=== PATIENT | female | born 1990 | race Caucasian/White ===

== ENCOUNTER 2018-11-12 12:27 | Outpatient (CLI) | payer MEDICAID ==
[~2018-11-12] VITALS: Ht 149.9 cm; Wt 93.9 kg
[2018-11-12 13:09] VITALS: BP 111/67; PULSE 107; RESP 22
[2018-11-12 13:10] VITALS: Ht 149.9 cm; Wt 93.9 kg
--- NOTE | 2018-11-12 16:14 | PN ---
Triage Information Date/Time Reason for visit: decreased movements Weeks of Gestation 25+ /Para n/a Diabetes: none Hypertention: none Objective Vital Signs Date Temp Pulse Resp B/P (MAP) Pulse Ox O2 O2 Flow FiO2 Time Delivery Rate 11/12/18 98.8 107 22 111/67 98 Room Air 13:09 (82) Heart Rate: 140's Contractions: None Results/Medications Results 24 hrs Laboratory Tests Test 11/12/18 13:40 Urine Color YELLOW Urine Clarity SLIGHTLY CLOUDY A Urine pH 5.0 Urine Specific [place] 1.025 Urine Ketones TRACE A Urine Nitrite NEGATIVE Urine Bilirubin NEGATIVE Urine Urobilinogen NEGATIVE Urine Leukocyte Esterase 2+ H Urine Microscopic RBC 4 Urine Microscopic WBC 51 H Urine Squamous Epithelial Cells FEW Urine Bacteria FEW A Urine Mucus FEW A Urine Hemoglobin NEGATIVE Urine Glucose 1+ H Urine Total Protein 1+ H Fibronectin NEGATIVE Disposition: Discharge Assessment/Plan Ultrasound reviewed +FM --->discharged to ER for further work up for cough --->Questions answered --->Follow up with provider JASON SERRATO M.D. Nov 12, 2018 16:14
--- NOTE | 2018-11-12 16:25 | TRIAGE ---
OB Triage Datetime Report Generated by CPN: 11/12/2018 16:25 Datetime: 11/12/2018 16:00 Pattern: Normal: <= 5 Contractions in 10 Minutes Resting Tone [place]: Relaxed Contraction Comments: no uc Heart Rate FHR Baseline Rate: 145 Monitor Mode: External US Variability: Moderate 6-25 bpm Accelerations: 15X15 Decelerations: None Category: Category I Datetime: 11/12/2018 15:00 Pattern: Normal: <= 5 Contractions in 10 Minutes Resting Tone [place]: Relaxed Contraction Comments: no uc Heart Rate FHR Baseline Rate: 135 Variability: Moderate 6-25 bpm Accelerations: 15X15 Decelerations: None Category: Category I Datetime: 11/12/2018 13:59 Contraction Comments: no uc Heart Rate FHR Baseline Rate: 145 Datetime: 11/12/2018 13:05 Labor Evaluation Frequency: 0 Monitor Mode: External Resting Tone [place]: Relaxed Heart Rate FHR Baseline Rate: 140 Monitor Mode: External US FHR Baseline Changes: No Baseline Change Decelerations: None Category: Category I Datetime: 11/12/2018 13:01 Stage of : OB Triage Assessment Type: Triage Maternal Assessment Level of Consciousness: Fully Conscious DTR's/Clonus: DTRs 2+; No Clonus Headache: Denies Blurred Vision: No Respiratory Effort: Unlabored; Regular Rhythm; Equal Expansion Breath Sounds, Left: Clear and Equal Breath Sounds, Right: Clear and Equal Nausea/Vomiting: Denies RUQ Epigastric Pain: Denies Lower Extremities Edema: Bilateral Lower Extremities Degree: 1+ Upper Extremities Edema: None Degree: None Facial Edema: None Temperature Route: Oral Fall Risk Assessment History of Falling: (0) No Secondary Diagnosis: (0) No Ambulatory Aid: (0) Bedrest/Nurse Assist IV Therapy: (0) No Gait: (0) Normal/Bedrest/Immobile Mental Status: (0) Oriented to Own Ability Fall Score: 0 Fall Risk Score Definition: No Risk: No action required Monitor Mode: External Monitor Mode: External US Pain Assessment Pain Scale: 0 Pain Presence: None/Denies Pain Type: N/A Pain Goal: 0 Pain Relief Measures: Comfort Measures Vaginal Exam Dilatation (cms): DEFFER Membrane Status: Intact Datetime: 11/12/2018 13:00 Time of Arrival: 11/12/2018 13:00 EGA: 24.6 Arrived By: Ambulatory Arrived From: Home Chief Complaint: DECREASED MOVEMENT AND BROAD LIGAMENT PAIN, also c/o coughing for 15 days Movement: Decreased Contractions: Denies/Absent Rupture of Membranes: Denies Vaginal Bleeding: None Vaginal Discharge: Denies Recent Sexual Intercouse: Denies Abdominal Trauma: Not Applicable Patient Complaints: Cramping Additional Patient Complaints: EXT FM AND TOCO MONITORING Time Provider Notified: 11/12/2018 13:35 Provider Notified:
[2018-11-12] MEDS ORDERED: AZIT250T PO (17:51)
[2018-11-12] MEDS ORDERED: ALBU18HF INHALATION (17:51)
== END 2018-11-12 16:35 | disposition home or self-care (01) ==
LOC: OBT 12:27 → L-D 12:27 → OBT 16:35
PROVIDERS: ATTEND Obstetrics & Gynecology
DX: O36.8120 Decreased fetal movements, second trimester, not applicable or unspecified (principal); Z3A.25 25 weeks gestation of pregnancy
CPT/HCPCS: 76817; 81001; 82731; Z7500; G0463

== ENCOUNTER 2018-11-12 16:33 | Emergency (ER) | payer MEDICAID ==
[~2018-11-12] VITALS: Ht 165.1 cm; Wt 93.4 kg
[2018-11-12 17:35] VITALS: Ht 165.1 cm; Wt 93.4 kg
[2018-11-12] MEDS ORDERED: ALBUTEROL 0.083% (NEB) 2.5 MG/3 ML AMP HHN STA (17:50)
[2018-11-12] MEDS ORDERED: ALBU18HF INHALATION (17:51)
[2018-11-12] MEDS ORDERED: AZIT250T PO (17:51)
--- NOTE | 2018-11-12 17:53 | ERD ---
ER Documentation Chief Complaint Chief Complaint Complains of cough, colds and flu like symptoms HPI 28-year-old female presents with a one-week history of coughing and wheezing. She has a productive cough. She denies fevers. She has ear pain and sore throat as well. She is 25 weeks denies abdominal pain or vaginal bleeding. She has a history of asthma but does not have a inhaler at home. ROS All systems reviewed and are negative except as per history of present illness. Medications Home Meds Active Scripts Azithromycin* (Zithromax*) 250 Mg Tablet, 250 MG PO .ZPACK DIRECTED, #6 TAB TAKE 500 MG (2 TABS) THE FIRST DAY THEN 250 MG (1 TAB) DAYS 2-5 Prov:FAUSTINO BRADY MD 11/12/18 Albuterol Sulfate* (Ventolin HFA*) 18 Gm Hfa.aer.ad, 2 PUFF INHALATION Q4H, #1 INHALER Prov:FAUSTINO BRADY MD 11/12/18 Allergies Allergies: Coded Allergies: No Known Allergy (Unverified , 11/12/18) FmHx Family History: No diabetes, No coronary disease, No other Physical Exam Vitals Vital Signs Date Temp Pulse Resp B/P (MAP) Pulse Ox O2 O2 Flow FiO2 Time Delivery Rate 11/12/18 98.4 109 20 121/70 98 17:35 (87) Physical Exam Const: No acute distress Head: Atraumatic Eyes: Normal Conjunctiva ENT: Normal External Ears, Nose and Mouth. Gums and oropharynx normal. Neck: Full range of motion. No meningismus. Resp: Clear to auscultation bilaterally with rhonchi and wheezing and coarse breath sounds without rales or retractions. Cardio: Regular rate and rhythm, no murmurs Abd: Soft, non tender, non distended. Normal bowel sounds Skin: No petechiae or rashes Back: No midline or flank tenderness Ext: No cyanosis, or edema Neur: Awake and alert Psych: Normal Mood and Affect Results 24 hrs Current Medications Medications Dose Sig/Wilfredo Start Time Status Last (Trade) Ordered Route PRN Stop Time Admin Dose Reason Admin 8 mg ONCE ONCE 11/12/18 Dexamethasone PO 18:00 (Decadron) 11/12/18 18:01 Albuterol 5 mg ONCE STAT 2/25/19 DC (Proventil HHN 17:50 0.083% (Neb)) 11/12/18 17:51 Procedures/MDM Patient given Decadron 8 mg by mouth and albuterol 5 mg inhaled nebulizer. Patient improved breath sounds without rales or retractions on serial exam. She had mild increased expiratory phase without hypoxemia or signs of respiratory distress. Patient presents with a one-week history of worsening productive cough without signs of pneumonia, and no identifiable signs or symptoms of complications of . We will treat empirically with Zithromax, Ventolin, primary care follow-up and return precautions. The patient was stable with no new complaints during the ER course. Clinically, there is no current evidence to suggest meningitis, sepsis, acute abdomen, pneumonia, stroke, acute coronary syndrome, pulmonary embolism, aortic dissection or any other emergent condition appearing to require further evaluation or hospitalization. Patient counseled regarding my diagnostic impression and care plan. Prior to discharge all questions answered. Pt agrees with treatment plan and understands strict return precautions. Pt is instructed to follow up with primary care provider within 24- 48 hours. Precautionary instructions provided including instructions to return to the ER if not improving or for any worsening or changing symptoms or concerns. Departure Diagnosis: Primary Impression: Wheeze Additional Impression: Upper respiratory infection URI type: unspecified URI Qualified Codes: J06.9 - Acute upper respiratory infection, unspecified Condition: Stable Patient Instructions: Bronchitis With Wheezing (Adult) Additional Instructions: Cheque otro vez con arevalo doctor primario en el proximo gan or regresa para mas o nueva simptomas. FAUSTINO BRADY MD Nov 12, 2018 17:53
[2018-11-12] MEDS ORDERED: DEXAMETHASONE 4 MG TAB PO ONE (18:00)
[2018-11-12 19:41] VITALS: BP 120/63; PULSE 115; RESP 19
== END 2018-11-12 19:46 | disposition home or self-care (01) ==
LOC: FTE 16:33
DX: J06.9 Acute upper respiratory infection, unspecified (principal)
CPT/HCPCS: 94664; Z7502; Z7610

== ENCOUNTER 2019-01-25 08:26 | Emergency (ER) | payer MEDICAID ==
[~2019-01-25] VITALS: Ht 149.9 cm; Wt 93.0 kg
[~2019-01-25 08:26] MED LIST: ALBU18HF INHALATION; AZIT250T PO
[2019-01-25 08:30] VITALS: BP 110/58; PULSE 102; RESP 20; Ht 149.9 cm; Wt 93.0 kg
[2019-01-25] MEDS ORDERED: HC30CR25 TOP (08:50)
--- NOTE | 2019-01-25 08:52 | ERD ---
ER Documentation Chief Complaint Chief Complaint rash on both legs x 4 days ago - 35 weeks -sympotms not related HPI 28-year-old female presents the emergency department complaining of an itchy rash on her legs. Patient states approximate 4 days ago, she began having a nonspecific itchy rash on both of her legs. She reports no fevers, chills, wheezing. In regards to her , she reports normal movement with no pelvic cramping, vaginal bleeding or discharge. Patient reports no new exposures ROS All systems reviewed and are negative except as per history of present illness. Medications Home Meds Active Scripts Hydrocortisone* Topical (Hydrocortisone* Topical) 2.5%-28.3 Gm Cream..g., 1 APPLIC TOP BID for itch, #1 TUB Prov:MICHELLE WATT 01/25/19 Azithromycin* (Zithromax*) 250 Mg Tablet, 250 MG PO .ZPACK DIRECTED, #6 TAB TAKE 500 MG (2 TABS) THE FIRST DAY THEN 250 MG (1 TAB) DAYS 2-5 Prov:FAUSTINO BRADY MD 11/12/18 Albuterol Sulfate* (Ventolin HFA*) 18 Gm Hfa.aer.ad, 2 PUFF INHALATION Q4H, #1 INHALER Prov:FAUSTINO BRADY MD 11/12/18 Allergies Allergies: Coded Allergies: No Known Allergy (Unverified , 11/12/18) PMhx/Soc Hx Alcohol Use: No Hx Substance Use: No Hx Tobacco Use: No Physical Exam Vitals Vital Signs Date Temp Pulse Resp B/P (MAP) Pulse Ox O2 O2 Flow FiO2 Time Delivery Rate 01/25/19 97.6 102 20 110/58 97 08:30 (75) Physical Exam GENERAL: The patient is well developed and appropriate for usual state of health in no apparent distress HEENT: Pupils equal, round, and reactive to light. EOMI. There is no scleral icterus. No tonsillar or tongue hypertrophy NECK: C-spine is soft and supple, there is no meningismus. There is no cervical lymphadenopathy. No uvular swelling or stridor LUNGS: Clear to auscultation bilaterally. There are no rales, wheezes or rhonc hi. HEART: Regular rate and rhythm, no murmurs, clicks, rubs or gallops. ABDOMEN: Soft, gravid. Nontender. EXTREMITIES: There is no peripheral cyanosis or edema. No focal swelling or erythema. NEURO: The patient moves all four extremities with 5/5 strength. Cranial nerves II - XII are intact. Normal gait. Alert and oriented SKIN: Nonspecific dermatitis on both lower extremities. No significant urticaria. The remainder of the skin other than the legs appears normal. HEME/LYMPHATIC: There is no evidence of excessive bruising or lymphedema. PSYCHIATRIC: The patient does not appear anxious or depressed. Procedures/MDM Patient was taken to a room, seen and examined Medical decision makin-year old female presents with a nonspecific dermatitis. At this time I see no signs of systemic concerns including no evidence of anaphylaxis. Patient will be treated topically. I see no concerns or comp occasions with the at this time given her history and exam. She appears to be appropriate for outpatient care at this time. Departure Diagnosis: Primary Impression: Rash Condition: Stable Patient Instructions: Self-Care for Skin Rashes, Dermatitis, Non-Specific MICHELLE WATT January 25, 2019 08:52
== END 2019-01-25 09:03 | disposition home or self-care (01) ==
LOC: FTE 08:26
DX: L30.9 Dermatitis, unspecified (principal)
CPT/HCPCS: 99283

== ENCOUNTER 2019-02-20 05:52 | Inpatient (IN) | payer MEDICAID ==
[~2019-02-20] VITALS: Ht 149.9 cm; Wt 100.1 kg
[~2019-02-20 05:52] MED LIST changes: +HC30CR25 TOP
[2019-02-20 05:59] VITALS: Ht 149.9 cm; Wt 100.1 kg
[2019-02-20] MEDS ORDERED: CARBOPROST 250 MCG INJ IM PRN ×2 (06:00→19:00)
[2019-02-20] MEDS ORDERED: METHYLERGONOVINE 0.2 MG INJ IM PRN ×2 (06:00→19:00)
[2019-02-20] MEDS ORDERED: MISOPROSTOL 200 MCG TAB PR PRN ×2 (06:00→19:00)
[2019-02-20] MEDS ORDERED: OXYTOCIN 30 UNITS/LR 500 ML IV PRN ×2 (06:00→19:00)
[2019-02-20] MEDS ORDERED: CEFAZOLIN 2 GM/50 ML (PMX) 50 ML IVPB SCH (06:00)
[2019-02-20] MEDS: LACTATED RINGER'S 1,000 ML IV SCH ×3 (06:41→14:48)
[2019-02-20 06:42] VITALS: BP 120/70; PULSE 98; RESP 17
--- NOTE | 2019-02-20 07:23 | PREAC ---
Date/Time of Note Date/Time of Note DATE: 02/20/19 TIME: 07:21 Anesthesia Eval and Record Evaluation Time Pre-Procedure Interview DATE: 02/20/19 TIME: 07:21 Age 28 Sex female NPO: 8 hrs Preoperative diagnosis Macrosomia Planned procedure Past Medical History Past Medical History: Includes Pulm: Asthma GI: Obesity Surgery & Anesthesia Issues No known issue Meds Anticoagulation: No Beta Destinee within 24 hr: No Reason Beta Destinee not given: Pt. not on B-Destinee Active Scripts Hydrocortisone* Topical (Hydrocortisone* Topical) 2.5%-28.3 Gm Cream..g., 1 APPLIC TOP BID for itch, #1 TUB Prov:MICHELLE WATT 01/25/19 Azithromycin* (Zithromax*) 250 Mg Tablet, 250 MG PO .ZPACK DIRECTED, #6 TAB TAKE 500 MG (2 TABS) THE FIRST DAY THEN 250 MG (1 TAB) DAYS 2-5 Prov:FAUSTINO BRADY MD 11/12/18 Albuterol Sulfate* (Ventolin HFA*) 18 Gm Hfa.aer.ad, 2 PUFF INHALATION Q4H, #1 INHALER Prov:FAUSTINO BRADY MD 11/12/18 Current Medications Lactated Ringer's 1,000 ml @ 125 mls/hr Q8H IV Last administered on 02/20/19at 06:41; Admin Dose 125 MLS/HR; Start 02/20/19 at 06:00 Cefazolin Sodium/ Dextrose 50 ml @ 100 mls/hr ONCE IVPB ; Start 02/20/19 at 06:00 Oxytocin/Lactated Ringer's 500 ml @ 0 mls/hr ONCE PRN IV .VAGINAL BLEEDING; Start 02/20/19 at 06:00 Methylergonovine Maleate (Methergine) 0.2 mg ONCE PRN IM .VAGINAL BLEEDING; Start 02/20/19 at 06:00 Carboprost Tromethamine (Hemabate) 250 mcg ONCE PRN IM .VAGINAL BLEEDING; Start 02/20/19 at 06:00 Misoprostol (Cytotec) 1,000 mcg ONCE PRN NE .VAGINAL BLEEDING; Start 02/20/19 at 06:00 Meds reviewed: Yes Allergies Coded Allergies: No Known Allergy (Unverified , 11/12/18) Allergies Reviewed: Yes Labs/Studies Labs Reviewed: Reviewed by anesthesiologist Result Diagram: 02/20/19 0630 Laboratory Tests 02/20/19 06:30 test: N/A Pre-procedure Exam Last vitals Vital Signs Date Temp Pulse Resp B/P (MAP) Pulse Ox O2 O2 Flow FiO2 Time Delivery Rate 02/20/19 98.3 98 17 120/70 Room Air 06:42 (87) Airway: Adequate mouth opening Mallampati: Mallampati II Teeth: Normal Lung: Normal Heart: Normal ASA Physical Status ASA physical status: 5 Emergency: None Planned Anesthetic Neuraxial: Spinal Planned Pain Management Sub-arachniod narcotics Pre-operative Attestations Prior to commencing anesthesia and surgery, the patient was re-evaluated, there was verification of: *The patient's identity *The results of appropriate recent lab work and preoperative vital signs *The above evaluation not changing prior to induction *Anesthetic plan, risk benefits, alternative and complications discussed with patient/family; questions answered; patient/family understands, accepts and wishes to proceed. DELGADO KENNEDY MD Feb 20, 2019 07:23
[2019-02-20] MEDS ORDERED: PHENYLephrine (100 MCG/ML) 10ML SYG ONE (07:48)
[2019-02-20] MEDS ORDERED: morphine SULFATE/PF (10 MG/10 ML) INJ ONE (07:48)
--- NOTE | 2019-02-20 08:04 | HP ---
Date/Time of Note Date/Time of Note DATE: 02/20/19 TIME: 08:00 OB - History Hx of Present Free Text/Dictation 28-year-old 1 with single intrauterine at 39 weeks and 1 day with NICOLÁS of 02/25/2019 admitted for delivery for LGA. She states good movement. She denies nausea, vomiting, shortness of breath, chest pain, headache, visual changes, vaginal bleeding or LOF. Risk factors: -LGA: Recent ultrasound EFW of 9 pounds 15 ounces -ObesityBMI of 44.6 -History of UTI in current pregnancyx2, last one diagnosed yesterday. Rocephin 1 g IM given yesterday Chief Complaint: Scheduled for delivery for LGA Estimated Due Date: Feb 25, 2019 : 1 Care: Good Care Ultrasounds: Normal mid trimester US Obstetrical Complications: None Medical Complications: None Past Family/Social History * Past Medical, Surgical, Family and Obstetric Histories reviewed from chart. OB Admission Exam Vital Signs Vital Signs Vital Signs Date Temp Pulse Resp B/P (MAP) Pulse Ox O2 O2 Flow FiO2 Time Delivery Rate 02/20/19 98.3 98 17 120/70 Room Air 06:42 (87) Physical Exam HEENT: WNL Heart: Rhythm Normal Lungs: Clear Abdomen: WNL Extremities: Normal Reflexes: Normal Membranes: Intact Heart Rate: 140's Accelerations: Accelerations Present Decelerations: No Decelerations Varibility: Moderate Last 72 hours Lab Results CBC & BMP 02/20/19 06:30 OB Assessment/Plan Other plan: 28-year-old 1 with single intrauterine at 39 weeks and 1 day with NICOLÁS of 02/25/2019 admitted for delivery for LGA. -FHR: No sign of metabolic acidosis- Category I -Continuous EFM, toco -CBC, blood type and screen -Please see the orders -O+/Rubella: Immune -GBS: Negative 2) LGA: I have discussed there are greater risk with increase weight compare to the general obstetric population which including but not limited to Labor abnormalities, increase risk of delivery and shoulder dystocia with risk of fracture of the clavicle, humerus and damage to the nerves of the brachial plexus, risk of morbidity for infant. Persistent injury is more common with higher weights, and weights greater than 4,500 gram in particular. 3) See the risk factors The risk of delivery including but not limited to bleeding, infection, injury to other organs (bowel, bladder, ureter, vessels, nerves), injury to fetus, blood transfusion, blood transfusion related infection, risk of anesthesia, adhesion, needs for future , removal of uterus or any other indicated surgery was discussed with the patient and her family. She expressed understanding. All of her questions were answered. She signed the informed consent. PHYSICIAN'S VERIFICATION OF INFORMED CONSENT The patient was counseled regarding the procedure, its indications, risks, potential complications and alternatives and any questions were answered. Consent was obtained. PLANNED PROCEDURE/TREATMENT: delivery with possible using vacuum/forceps and any other indicated surgery PHYSICIAN'S VERIFICATION OF INFORMED CONSENT FOR BLOOD TRANSFUSION: There is a reasonable possibility that blood transfusion will be necessary as a result of the patient's procedure. I have discussed the following with the patient/patient's legal instruments sales representative: An explanation of the benefits and risks of the transfusion of blood or blood products and the possible alternatives. All questions have been answered to the patient's satisfaction. INFORMED CONSENT:The patient has been informed of: The nature of the proposed care, treatment, services, medications, interventions or procedures. Potential benefits, risks or side effects, including potential problems related to recuperation. The likelihood of achieving care treatment and service goals. Reasonable alternatives to the proposed care, treatment and service. The relevant risks, benefits and side effects related to alternatives, i ncluding the possible results of not receiving care, treatment and services. When indicated, any limitations on the confidentiality of information learned from or about the patient. If appropriate, the risks, benefits and alternatives of the drugs to be used for sedation/analgesia including moderate sedation. If appropriate, patient has been provided information on the risks, benefits and alternatives to the transfusion of blood and/or blood products. If appropriate, patient has been provided information regarding the [place] [employer] [place] Blood Act. MAGDA KOHLER Feb 20, 2019 08:04
[2019-02-20] MEDS ORDERED: ONDANSETRON 4 MG INJ ONE (13:00)
[2019-02-20] MEDS ORDERED: ONDANSETRON 4 MG INJ IV PRN ×2 (13:30)
[2019-02-20] MEDS ORDERED: NALOXONE (0.4 MG/ML) INJ IV PRN (13:30)
[2019-02-20] MEDS ORDERED: ALBUTEROL 0.083% (NEB) 2.5 MG/3 ML AMP HHN PRN (13:30)
[2019-02-20] MEDS ORDERED: morphine 2 MG INJ IV PRN (13:30)
[2019-02-20] MEDS ORDERED: TRIMETHOBENZAMIDE 100 MG/ML VIAL IM PRN ×2 (13:30)
[2019-02-20] MEDS ORDERED: NALBUPHINE HCL (10 MG/1 ML) INJ IV PRN (13:30)
[2019-02-20] MEDS ORDERED: HYDROmorphONE 1 MG/5 ML IV SYRINGE IV PRN ×3 (13:30)
[2019-02-20] MEDS ORDERED: MEPERIDINE 25 MG INJ IV PRN (13:30)
[2019-02-20] MEDS ORDERED: OXYCODONE/ACETAMINOPHEN (5/325) TAB PO PRN ×2 (13:30)
[2019-02-20] MEDS ORDERED: MIDAZOLAM 1 MG/ML 2 ML INJ IV PRN (13:30)
[2019-02-20] MEDS ORDERED: DIPHENHYDRAMINE 50 MG INJ IV PRN ×2 (13:30)
[2019-02-20] MEDS ORDERED: LABETALOL HCL 20MG INJ IV PRN (13:30)
[2019-02-20] MEDS ORDERED: FENTAnyl 50 MCG/ML VIAL IV PRN ×3 (13:30)
[2019-02-20] MEDS ORDERED: EPHEDrine 25 MG/5 ML SYG IV PRN (13:30)
[2019-02-20] MEDS ORDERED: IPRATROPIUM (NEB) 0.5 MG/2.5 ML AMP HHN PRN (13:30)
[2019-02-20] MEDS ORDERED: KETOROLAC 30 MG INJ IV PRN (13:30)
[2019-02-20] MEDS ORDERED: hydrALAzine 20 MG INJ IV PRN (13:30)
--- NOTE | 2019-02-20 14:25 | PAC ---
Date/Time of Note Date/Time of Note DATE: 02/20/19 TIME: 13:38 Post-Anesthesia Notes Post-Anesthesia Note Last documented vital signs Vital Signs Date Temp Pulse Resp B/P (MAP) Pulse Ox O2 O2 Flow FiO2 Time Delivery Rate 02/20/19 98.3 98 17 120/70 Room Air 06:42 (87) Activity: WNL Respiratory function: WNL Cardiovascular function: WNL Mental status: Baseline Pain reasonably controlled: Yes Hydration appropriate: Yes Nausea/Vomiting absent: Yes DELGADO KENNEDY MD Feb 20, 2019 14:25
--- NOTE | 2019-02-20 15:30 | OPR ---
Operative Report Planned Procedure Procedure date Feb 20, 2019 Procedure(s) Primary low transverse delivery Performed by see signature line Sanipractic Physician: REHANA KAT MD Anesthesiologist: DELGADO KENNEDY MD Pre-procedure diagnosis 28-year-old 1 with single intrauterine at 39 weeks and 1 day with LGA [id number] Anesthesia Type: [id number] spinal Post-Procedure Post-procedure diagnosis 28-year-old 1 with single intrauterine at 39 weeks and 1 day with LGA Findings 1. Normal uterus, fallopian tubes and ovaries 2. Viable female in cephalic presentation. 9 at one minute and 9 in 5 minutes. Weight: 10 pound - 4525 g. Time of delivery: 13:21 Height: 21. There was nuchal cord x2 which released 3. Placenta with three vessel cord 4. Amniotic fluid - Clear Estimated Blood Loss: 500 - 600 mls Specimen(s) none Grafts/Implant(s) none Complication(s) none Pt Condition post procedure: stable Disposition: PACU Procedure Description INDICATION AND HISTORY: A 28-year-old 1 with single intrauterine at 39 weeks and 1 day. The risk of delivery including but not limited to bleeding, infection, injury to other organs (bowel, bladder, ureter, vessels, nerves), injury to fetus, blood transfusion, blood transfusion related infection, risk of anesthesia, adhesion, needs for future , removal of uterus or any other indicated surgery was discussed with the patient and her family. She expressed understanding. All of her questions were answered. She signed the informed consent. DESCRIPTION OF OPERATION: The patient was taken to the operating room, where she was identified and the procedure was verified. The patient received two gram of Ancef 30 minutes prior to surgery. Spinal anesthesia was placed by anesthesiologist. The patient placed in the dorsal supine position with a left tilt. The heart rate wa s 130 bpm. The patient was then prepped and draped in the normal sterile fashion. A Pfannenstiel skin incision was made and carried down to the fascia with knife. The fascia was incised in the midline and the fascial incision was carried laterally with Godfrey scissors. The superior portion of the fascial incision was then grasped with Wilian clamps and tented up and dissected off the underlying rectus muscle with sharp dissection. The lower portion of the fascial incision was then made in a similar fashion. The rectus muscle was and the peritoneum was entered. The peritoneal incision was then stretched and a bladder blade was inserted. Then, an incision was made in the lower uterine segment in a transverse fashion with a knife and extended bluntly. The was delivered atraumatically in cephalic presentation with the above findings. The umbilical cord was clamped and cut. The neonatology resuscitation team was present and the baby was handed to them. A cord blood sample was obtained for further evaluation. The placenta and membrane, which appeared normal were Removed. The uterus was exteriorized and cleared of all clot and debris. The uterus was then closed in a two layer fashion with 0- Monocryl. At the time of closure, hemostasis was noted. The gutters were irrigated. The peritoneum was reapproximated with 3-0 Vicryl. The muscle was reapproximated with 3-0 Vicryl. The fascia was approximated with 0-Vicryl in a running fashion. The subcutaneous tissue was re approximated with 3-0 vicryl 2 layer. The skin was closed with 4-0 Monocryl. All instruments, sponges and needle counts were correct x3. The patient tolerated the procedure well. She transferred to the recovery room in stable condition. MAGDA KOHLER Feb 20, 2019 15:30
[2019-02-20] MEDS ORDERED: CEFTRIAXONE 1 GM/50 ML (PMX) 50 ML IVPB SCH (16:00)
[2019-02-20] MEDS: SOD CHLORIDE 0.9% 1,000 ML IV SCH (16:34)
[2019-02-20 18:30] VITALS: BP 97/56; PULSE 111; RESP 18
[2019-02-20] MEDS ORDERED: OXYTOCIN 30 UNITS/LR 500 ML IV SCH (18:44)
[2019-02-20] MEDS: DEXTROSE 5%-LR 1,000 ML IV SCH (18:44)
[2019-02-20] MEDS ORDERED: MAGNESIUM HYDROXIDE 30ML CUP PO PRN (19:00)
[2019-02-20] MEDS ORDERED: METHYLERGONOVINE 0.2 MG TAB PO PRN (19:00)
[2019-02-20] MEDS ORDERED: LANOLIN HPA 1 PKT TOP PRN (19:00)
[2019-02-20 20:00] VITALS: BP 99/64; PULSE 110; RESP 18
[2019-02-20] MEDS: SENNA/DOCUSATE NA (8.6MG/50MG) TAB PO SCH (21:22)
[2019-02-20] MEDS: IBUPROFEN 800 MG TAB PO SCH (21:59)
[2019-02-21] VITALS (7 sets, daily range): BP systolic 95–123; BP diastolic 50–62; PULSE 100–111; RESP 18–19
[2019-02-21] MEDS: SOD CHLORIDE 0.9% 1,000 ML IV SCH ×3 (01:32→16:30)
[2019-02-21] MEDS: DEXTROSE 5%-LR 1,000 ML IV SCH ×3 (02:44→18:44)
[2019-02-21] MEDS: IBUPROFEN 800 MG TAB PO SCH ×3 (06:25→21:49)
[2019-02-21] MEDS: LACTATED RINGER'S 1,000 ML IV SCH ×3 (06:29→22:00)
[2019-02-21] MEDS: SENNA/DOCUSATE NA (8.6MG/50MG) TAB PO SCH ×2 (08:56→21:49)
[2019-02-21] MEDS ORDERED: DIPHTH/TET/ACEL PERTUSS (ADULT) 0.5 ML VIAL IM* ONE (11:00)
[2019-02-21] MEDS: FERROUS SULFATE (EC) 325 MG TAB PO SCH ×2 (13:39→21:49)
[2019-02-21] MEDS: HYDROCODONE/APAP (5/325) TAB GTB SCH ×2 (13:40→21:50)
[2019-02-21] MEDS ORDERED: CEFTRIAXONE 2 GM/50 ML (PMX) 50 ML IVPB ONE (16:30)
[2019-02-22] MEDS: SOD CHLORIDE 0.9% 1,000 ML IV SCH (00:30)
[2019-02-22] MEDS: DEXTROSE 5%-LR 1,000 ML IV SCH ×3 (02:44→18:44)
[2019-02-22 05:04] VITALS: BP 106/68; PULSE 100; RESP 20
[2019-02-22] MEDS: HYDROCODONE/APAP (5/325) TAB GTB SCH ×3 (05:29→21:38)
[2019-02-22] MEDS: IBUPROFEN 800 MG TAB PO SCH ×3 (05:29→21:38)
[2019-02-22] MEDS: LACTATED RINGER'S 1,000 ML IV SCH (06:00)
[2019-02-22 08:00] VITALS: BP 99/62; PULSE 107; RESP 18
[2019-02-22] MEDS: SENNA/DOCUSATE NA (8.6MG/50MG) TAB PO SCH ×2 (08:45→20:32)
[2019-02-22] MEDS: FERROUS SULFATE (EC) 325 MG TAB PO SCH ×2 (08:45→20:32)
[2019-02-22] MEDS: NITROFURANTOIN (SR) 100 MG CAP PO SCH ×2 (08:45→20:32)
[2019-02-22 16:01] VITALS: BP 108/77; PULSE 110; RESP 16
--- NOTE | 2019-02-22 16:43 | QN ---
Documentation Comment flatus very little no c/o except inc pain Vss afebrile abdomen inc not seen since patiet start working bur she said its dry calf neg for tenderness lochia min post op CBC 13.4/7.9,24.5/207 A s/p PC/S #2 P ferrous gluconate REHANA AKT MD Feb 22, 2019 16:43
[2019-02-22 19:30] VITALS: BP 111/59; PULSE 82; RESP 20
[2019-02-23 04:11] VITALS: BP 109/61; PULSE 87; RESP 19
[2019-02-23] MEDS: HYDROCODONE/APAP (5/325) TAB GTB SCH ×2 (05:47→14:38)
[2019-02-23] MEDS: IBUPROFEN 800 MG TAB PO SCH ×2 (05:47→14:38)
[2019-02-23 08:00] VITALS: BP 122/59; PULSE 108; RESP 20
[2019-02-23] MEDS ORDERED: MEASLES,MUMPS,RUBELLA VACCINE INJ SC* ONE (09:00)
[2019-02-23] MEDS ORDERED: DIPHTH/TET/ACEL PERTUSS (ADULT) 0.5 ML VIAL IM* ONE (09:00)
[2019-02-23] MEDS: SENNA/DOCUSATE NA (8.6MG/50MG) TAB PO SCH (09:01)
[2019-02-23] MEDS: FERROUS SULFATE (EC) 325 MG TAB PO SCH (09:01)
[2019-02-23] MEDS: NITROFURANTOIN (SR) 100 MG CAP PO SCH (09:01)
[2019-02-23] MEDS: HYDROCODONE/APAP (5/325) TAB NGT PRN ×2 (12:18→17:16)
[2019-02-23 16:17] VITALS: BP 104/66; PULSE 92; RESP 20
--- NOTE | 2019-02-24 16:26 | PN ---
Date/Time of Note Date/Time of Note DATE: 02/24/19 TIME: 16:25 OB Subjective Subjective Subjective Late entry note. Patient seen on 02/21/2019 POD#1 Patient is doing well. She denies nausea, vomiting, shortness of breath, chest pain, headache. She has been ambulating without difficulty, tolerating regular diet. Pain is well controlled on current medications OB Objective Objective Objective General: AAO X 3, comfortable, NAD, appropriate mood and affect. Heart: RRR +S1, +S2, no murmurs. Lungs: Clear to auscultation (B/L), no rales, rhonchi or wheezing. ABD: +BS. Soft, non-tender. Uterus 2 cm below umbilicus Incision: Clear, dry, intact. No erythema, drainage or induration. Flank: No CVA tenderness (B/L) LE: Mild edema. No clubbing, cyanosis, thigh or calf tenderness (B/L). Homans 'sign is negative OB Assessment/Plan Other plan: 28-year-old -0-0-1 s/p primary delivery for suspected macrosomia. POD#1 - AF, VSS - Baby is doing well, at bed side. She is bonding well - Contraception methods with R/B/A/FR discussed - Continue care MAGDA KOHLER Feb 24, 2019 16:26
--- NOTE | 2019-02-24 16:30 | DS ---
Date/Time of Note Date/Time of Note DATE: 02/24/19 TIME: 16:29 Obstetrical Discharge Record Final Diagnosis Final Diagnosis: Term delivered Other Final Diagnosis 28-year-old -0-0-1 s/p primary delivery for suspected macrosomia. POD#1. course was unremarkable - AF, VSS - Baby is doing well, at bed side. She is bonding well - Contraception methods with R/B/A/FR discussed - Continue care - Discharge home - Rx and instruction given - Follow up in one and 6 weeks Section Section: Primary (Suspected macrosomia) Condition on Discharge Physical Assessment Voiding: Yes Bowel Movement: Yes Breast: Soft, non-tender Fundus: Firm Calf Tenderness: No Patient Condition: Stable MAGDA KOHLER Feb 24, 2019 16:30
--- NOTE | 2019-02-24 19:06 | DELSUM ---
Delivery Summary A-C Datetime Report Generated by CPN: 02/24/2019 19:06 DELIVERY PERSONNEL Drawer In Hand: Lopez, Wenbing MATERNAL INFORMATION Delivery Anesthesia: Spinal Medications in Delivery: SEE ANESTHESIA RECORDS Delivery QBL (ml): 300 Placenta Cultured: No Maternal Complications: None LABOR SUMMARY EDC: 02/26/2019 00:00 No. Babies in Womb: 1 Attempted: No Labor Anesthesia: Intrathecal LABOR INFORMATION Reason for Induction: Not Applicable Oxytocin: N/A Group B Beta Strep: Negative Antibiotics # of Doses: 1 Antibiotics Time of Last Dose: 02/20/2019 12:45 Steroids Given: None Reason Steroids Not Administered: Not Applicable MEMBRANES Membranes Rupture Method: Artificial Rupture of Membranes: 02/20/2019 13:19 Length of Rupture (hr): 0.03 Amniotic Fluid Color: Clear Amniotic Fluid Amount: Moderate Amniotic Fluid Odor: None STAGES OF LABOR Stage 3 hr: 0 Stage 3 min: 1 CSECTION DELIVERY Primary Indication: Other Other Primary Indication: SUSPECTED MACROSOMIA CSection Urgency: Elective CSection Incidence: Primary Labor: N/A Elective: N/A CSection Incision: Lower Uterine Transverse BABY A INFORMATION Infant Delivery Date/Time: 02/20/2019 13:21 Method of Delivery: Born in Route : No : N/A Forceps: N/A Vacuum Extraction: Successful Shoulder Dystocia : No ASSISTED DELIVERY BABY A Catheter Prior to Procedure: Yes Position Vacuum/Forcep Apply: Left Occipital Anterior Vacuum Number of Pulls: 1 Vacuum Number of PopOffs: 0 Reduce Pressure btwn Ctx: No Vacuum Regulatory Intern: [employer] Total Time Vacuum Applied: 10 SECONDS SHOULDER DYSTOCIA BABY A Infant Delivery Date/Time: 02/20/2019 13:21 PRESENTATION/POSITION BABY A Presentation: Cephalic Cephalic Presentation: Vertex Vertex Position: Left Occipital Anterior Breech Presentation: N/A PLACENTA INFORMATION BABY A Placenta Delivery Time : 02/20/2019 13:22 Placenta Method of Delivery: Manual Removal Placenta Status: Delivered SCORES BABY A Heart Rate 1 min: >100 bpm Resp Effort 1 min: Good Cry Reflex Irritability 1 min: Cough/Sneeze/Pulls Away Muscle Tone 1 min: Active Motion Color 1 min: Body [place], Extremit Blue Resuscitation Effort 1 min: Tactile Stimulation SCORE 1 MIN: 9 Heart Rate 5 min: >100 bpm Resp Effort 5 min: Good Cry Reflex Irritability 5 min: Cough/Sneeze/Pulls Away Muscle Tone 5 min: Active Motion Color 5 min: Body [place], Extremit Blue SCORE 5 MIN: 9 INFORMATION BABY A Gestational Age at Delivery: 39.1 Gestational Status: Full Term- 39- 40.6 Weeks Outcome : Liveborn Infant Condition : Stable Infant Sex: Female IDENTIFICATION/MEDS BABY A ID Band Number: [id number] ID Band Location: Right Leg; Left Arm Sensor Applied: Yes Sensor Number: [id number] Sensor Location : Cord Clamp WEIGHT/LENGTH BABY A Birthweight (gm): 4525 Infant Weight (lb): 10 Weight (oz): 0 Length (in): 21.00 Infant Length (cm): 53.34 CORD INFORMATION BABY A No. Cord Vessels: 3 Nuchal Cord : Around Neck x2, Loose Cord Blood Taken: Yes Suction: Mouth; Nose ASSESSMENT BABY A Complications: None Physical Findings at Delivery: Within Normal Limits Infant Respirations: Appears Normal Slip Presser/ALS Called : No Care By: /Yrai Transferred To: Remains with Mother
== END 2019-02-23 19:05 | disposition home or self-care (01) | DRG 788 ==
LOC: L-D 05:52 → PP1 18:13
PROVIDERS: ADMIT Obstetrics & Gynecology; ATTEND Obstetrics & Gynecology
PROC: 10D00Z1 Extraction of Products of Conception, Low, Open Approach (ICD-10-PCS; principal; 2019-02-20 07:30)
DX: O36.63X0 Maternal care for excessive fetal growth, third trimester, not applicable or unspecified (principal); O99.214 Obesity complicating childbirth; E66.9 Obesity, unspecified; O69.81X0 Labor and delivery complicated by cord around neck, without compression, not applicable or unspecified; Z3A.39 39 weeks gestation of pregnancy; Z37.0 Single live birth
CPT/HCPCS: 85025; 85610; 85730; 86592; 86850; 86900; 86901; 87340; 99464; J0690; J0696; J1885; J2274; J2370; J2405; J2590; J7030; J7120; J7121